=== PATIENT | female | born 1940 | race Caucasian/White ===

== ENCOUNTER → 2021-04-25 | Outpatient (CLI) | payer MEDICARE, OTHER ==
--- NOTE | 2021-04-25 08:53 | RAD ---
EXAM: Bilateral knees, 2 views. HISTORY: Pain. COMPARISON: None. FINDINGS: Standing frontal and lateral views of both knees are obtained. There is severe right greate r than left medial compartment joint space narrowing with subchondral sclerosis and marginal spurring . There is a bony remodeling involving the right greater than left medial compartment. There is moder ate right greater than left lateral compartment spurring. There is severe right and mild left patello femoral compartment spurring. There aren't small bilateral knee effusions. There is mild right greate r than left genu varus. 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 Electronically signed by: Tarsha Garcia MD (04/25/2021 8:51 AM) [id number]
== END ==
LOC: RAD 08:33
DX: M17.0 Bilateral primary osteoarthritis of knee (principal); M21.162 Varus deformity, not elsewhere classified, left knee; M21.161 Varus deformity, not elsewhere classified, right knee; M76.892 Other specified enthesopathies of left lower limb, excluding foot; M76.891 Other specified enthesopathies of right lower limb, excluding foot
CPT/HCPCS: 73560-50